=== PATIENT | male | born 1960 | race Caucasian/White ===

== ENCOUNTER 2016-11-26 21:29 | Observation (INO) | payer OTHER ==
--- NOTE | ~2016-11-26 | HP ---
History And Physical [place] [id number] [facility] [place]. [address] NAME: JAKE POZO : 58 STATUS : DIS Ishmael PAT#: [id number] AGE: 56 ADM/REG DATE : 11/26/16 MR#: [id number] REPORT SERV DATE: 11/27/16 DICTATED BY: FLY SPARKS DATE: 11/27/16 REPORT STATUS : Draft TRANSCRIBED BY: MODLauri DATE: 11/27/16 DATE OF ADMISSION: 11/26/2016 CHIEF COMPLAINT: Headache, chest pain with elevated blood pressure. HISTORY OF PRESENT ILLNESS: A pleasant 56-year-old white gentleman with no known history of CAD, states that he awoke this morning at 0230 hours with headache. He checked his blood pressure around 0600 hours that was 150/100. The headache persisted. He took 150 mg of losartan. His headache actually worsened over the next hour or so, and at 9 o'clock his blood pressure was 185/120 and he felt it prudent to come to the emergency room. He describes anterior chest tightness at that time. Does not radiate elsewhere with some associated belching. He denies shortness of breath, nausea, diaphoresis, or dizziness. He does report some lightheadedness and blurry vision. At its most intense, he rates the chest pain a 5/10. At time of interview in the [facility], he is pain free. The episode lasted several hours in duration. EMS was called. They provided aspirin and nitroglycerin sublingual twice with improvement in his blood pressure to 140/80, and improvement in his symptoms. The patient denies any personal history of myocardial infarction, stroke, DVT, or pulmonary embolus. The patient denies any recent fever or chills. No palpitations. No syncopal episodes. Denies PND or orthopnea. The patient reports having had a stress test at [place] approximately one year to 18 months ago, which sounds like a stress echo, which was negative per the patient's report. PAST MEDICAL HISTORY: 1. Hypertension. 2. Prediabetic. 3. Cholesterol per PCP and reportedly "good.". 4. Remote tobacco abuse. SURGICAL HISTORY: 1. Right groin lymph node removed for "cat-scratch fever.". 2. Left inguinal hernia repair. 3. Bilateral blepharoplasty. SOCIAL HISTORY: He is with four children. He works as a grant writer, previously in construction. He walks on a treadmill 30 minutes four times weekly, most recently this past Friday without incident. Quit smoking at 18, but then used smokeless tobacco for 10 years. Denies alcohol or illicits. FAMILY HISTORY: Mother at the age of 72 of heart failure and kidney disease. REVIEW OF SYSTEMS: A 14-point review of systems performed, significant for HPI including the patient reports a left knee swelling. Denies any injury. No pain. No erythema to palpation. No heat with a History And Physical [address] [address] NAME: JAKE POZO : 58 STATUS : DIS Ishmael PAT#: [id number] AGE: 56 ADM/REG DATE : 11/26/16 MR#: [id number] REPORT SERV DATE: 11/27/16 DICTATED BY: FLY SPARKS DATE: 11/27/16 REPORT STATUS : Draft TRANSCRIBED BY: NED DATE: 11/27/16 small palpable knot or spur on the anterior portion of his knee and reports home blood sugars of 70 to 150 monitored inconsistently. Otherwise, complete review of systems obtained and negative. ALLERGIES: ALLERGY TO SULFA, NAUSEA AND VOMITING; PHENERGAN AGITATION AND SLURRED WORDS. HOME MEDICINES: Arimidex 1 mg every two days, vitamin C 1000 mg daily, Caltrate one tablet daily, Maximum D3 one capsule daily, CoQ10 of 100 mg daily, vitamin B12 of 2500 mcg daily, Cozaar 100 mg daily, Glucophage XR 750 mg daily, Singulair 10 mg daily, Aleve 440 daily, prasterone DHEA one tablet daily, Aldactone 50 mg daily, testosterone injection weekly, potassium gluconate two tablets daily, resveratrol 250 mg daily, probiotic daily, bee pollen capsule daily, fish oil 2400 mg daily. PHYSICAL EXAMINATION: VITAL SIGNS: Bilateral blood pressures on arrival right 146/88, left 140/82, this morning 145/88, pulse 89, respirations 16, temperature 98.2, O2 saturation 93% on room air. Height 5 feet 8 inches, weight 215 pounds, BMI 32.7. GENERAL: Cooperative, in no apparent distress. HEENT: Pupils 2 mm, sclera nonicteric. Nares patent. Moist mucous membranes. No xanthelasma. NECK: Trachea midline, no thyromegaly. No JVD. No bruits. LYMPH: No cervical lymphadenopathy. No supraclavicular lymphadenopathy. RESPIRATORY: Unlabored respirations. Breath sounds clear bilaterally to posterior auscultation. No wheezes or rhonchi. CARDIOVASCULAR: Regular rate. No murmur, rub or gallop appreciated. Extremities without edema. Pulses 2+ bilaterally. ABDOMEN: Soft, nontender, nondistended, normal bowel sounds auscultated throughout. No organomegaly. SKIN: Warm, dry extremities. No pallor, or cyanosis. PSYCHIATRIC: Appropriate affect. Alert, oriented x3. EXTREMITIES: Left knee swollen. On exam, no pain, erythema, or heat. The patient denies any recent injury, small possible knot or spur on the anterior surface of his knee. LABORATORY DATA: Troponin less than 0.02 x3. Potassium 4.1, BUN 14, creatinine 0.97, glucose 107. Magnesium 1.9. WBC 6.7, hemoglobin 16.1, hematocrit 46.1, platelet count 236,000. EKG sinus rhythm. CT of brain negative study. ASSESSMENT AND PLAN: 1. Chest pain. The patient has been observed in the CPOU overnight to rule out myocardial infarction with serial enzymes and serial EKGs, all within normal limits. The patient has been held n.p.o. We will proceed with MPI today. The patient will be discharged home with low risk, no ischemia. If anything suggestive of ischemia, Cardiology referral will be initiated. Otherwise, the patient will be asked to follow up with PCP in one week with his previously scheduled appointment. 2. Hypertension, monitor blood pressure and continue home medications. History And Physical [address] [address] NAME: JAKE POZO : 58 STATUS : DIS Ishmael PAT#: [id number] AGE: 56 ADM/REG DATE : 11/26/16 MR#: [id number] REPORT SERV DATE: 11/27/16 DICTATED BY: FLY SPARKS DATE: 11/27/16 REPORT STATUS : Draft TRANSCRIBED BY: NED DATE: 11/27/16 3. Prediabetic, hold metformin, level 1 sliding scale correction. 4. Left knee swelling, edema. We will check an x-ray of left knee. Denies any injury. No pain, erythema, or heat on exam. Follow up with PCP for further evaluation and treatment. MARY ANN/MODL LUIS ALBERTO Luna, PACU RN-BC / [id number] CC: LUIS ALBERTO Luna, PACU RN-BC Silvino Daly MD
[2016-11-26 12:39] LABS: BASOPHILS 0.4 %; BASOPHILS ABSOLUTE 0.03 10/3/uL (0.0-0.16); EOSINOPHILS ABSOLUTE 0.07 10/3/uL (0.0-0.53); ER CBC TAT 0 Hrs 05 Mins; HEMATOCRIT 46.1 % (40.0-51.0); HEMOGLOBIN 16.1 g/dL (13.6-17.8); IMMATURE GRANULOCYTES 0.6 %; IMMATURE GRANULOCYTES ABSOLUTE 0.04 10/3/uL (0.0-0.11); LYMPHOCYTES 31.3 %; LYMPHOCYTES ABSOLUTE 2.09 10/3/uL (0.67-4.30); MEAN CORPUS HGB CONC 34.9 g/dL (32.0-36.0); MEAN CORPUSCULAR HEMOGLOB 30.8 pg (26.0-34.0); MEAN CORPUSCULAR VOLUME 88.1 fL (80-100); MEAN PLATELET VOLUME 10.2 fL (9.2-13.0); MONOCYTES 11.2 %; MONOCYTES ABSOLUTE 0.75 10/3/uL (0.21-1.20); NEUTROPHILS 55.5 %; NEUTROPHILS ABSOLUTE 3.69 10/3/uL (2.02-8.40); PLATELET COUNT 236 10/3/uL (150-400); RBC DISTRIBUTION WIDTH 12.7 % (12.0-16.0); RED CELL COUNT 5.23 10/6/uL (4.7-6.1); WHITE BLOOD CELLS 6.7 10/3/uL (4.5-10.5)
[2016-11-26 12:40] LABS: MANUAL DIFF NO %
[2016-11-26 12:46] LABS: INTERNATIONAL NORMAL RATI 1.1 UNITS (-); PROTIME (NOT ORD) 13.8 SEC (12.0-14.5)
[2016-11-26 12:47] LABS: PARTIAL THROMBO TIME 36.7 SEC (22.5-37.2)
[2016-11-26 12:56] LABS: BUN (BLOOD UREA NITROGEN) 14 MG/DL (6-23); CALCIUM, SERUM 9.2 MG/DL (8.5-10.4); CHEST PAIN PROFILE TAT 0 Hrs 22 Mins; CHLORIDE, SERUM 103 MMOL/L (96-112); CO2 (CARBON DIOXIDE) 26 MMOL/L (24-34); CREATININE 0.97 MG/DL (0.70-1.30); GFR AFRICAN AMERICAN 100 ML/MIN (>=60); GFR NON AFRICAN AMERICAN 86 ML/MIN (>=60); GLUCOSE, SERUM 107 MG/DL (60-99); POTASSIUM, SERUM 4.1 MMOL/L (3.5-5.3); SODIUM, SERUM 139 MMOL/L (135-148); TROPONIN I <0.02 NG/ML (<0.05)
[2016-11-26] MEDS ORDERED: COZAAR100 MG PO (22:30)
[2016-11-26] MEDS ORDERED: SINGULAIR1 PO (22:30)
[2016-11-26] MEDS ORDERED: GLUCOPHXR7 PO (22:30)
[2016-11-26] MEDS ORDERED: SPIRO50 PO (22:31)
[2016-11-26] MEDS ORDERED: ALEVE220 MG PO (22:31)
[2016-11-26] MEDS ORDERED: TESTOSTERONE INJ IM (22:31)
[2016-11-26] MEDS ORDERED: ARIMIDEX1 PO (22:31)
[2016-11-26] MEDS ORDERED: MAXIMUM D3 PO (22:32)
[2016-11-26] MEDS ORDERED: POTASSIUM GLUCONATE PO (22:32)
[2016-11-26] MEDS ORDERED: CALTRA600D PO (22:33)
[2016-11-26] MEDS ORDERED: CO Q-10100 MG PO (22:33)
[2016-11-26] MEDS ORDERED: [UNRECOGNIZED DRUG - OTHER] PO (22:33)
[2016-11-26] MEDS ORDERED: VITAMIN B-122500 MCG SL (22:33)
[2016-11-26] MEDS ORDERED: PROBIOTIC CAPSULE PO (22:34)
[2016-11-26] MEDS ORDERED: DHE1 PO (22:34)
[2016-11-26] MEDS ORDERED: BEE POLLEN PO (22:34)
[2016-11-26] MEDS ORDERED: VITC500 PO (22:34)
== END 2016-11-27 15:28 | disposition home or self-care (01) ==
LOC: ER 21:29 → CDU1 22:28
PROVIDERS: Emergency Medicine
DX: R07.9 Chest pain, unspecified (principal); I10 Essential (primary) hypertension; R60.9 Edema, unspecified; M25.462 Effusion, left knee; Z88.2 Allergy status to sulfonamides; Z79.899 Other long term (current) drug therapy; Z98.890 Other specified postprocedural states
CPT/HCPCS: 70450; 71020; 73560; 78452; 80048; 83735; 84484 ×2; 85025; 85610; 85730; 93005 ×2; 93017; 96374; 96375 ×2; 96376; 99285; A9502; G0378; J1200; J2550; A9270-GY